=== PATIENT | female | born 1935 | race Caucasian/White ===

== ENCOUNTER 2018-01-12 09:51 | Outpatient (CLI) | payer MEDICARE, OTHER ==
--- NOTE | 2018-01-12 11:42 | MMO ---
BILATERAL SCREENING MAMMOGRAMS: Date: 01/12/18 HISTORY: History of benign right breast biopsy. This patient's mammogram was interpreted with the assistance of computer-aided detection. COMPARISON: 12/14/16, 10/01/15, 07/10/14, 06/11/13. FINDINGS: There is a heterogeneously dense parenchymal pattern, which may lower the sensitivity of mammography. Again noted are vascular calcifications and benign-appearing calcifications seen in each breast. Bio psy marker clip is again seen in the right breast. Nodular densities within each breast are also agai n seen and stable. There is no dominant mass or suspicious grouping of microcalcifications seen in ei ther breast. IMPRESSION: BIRADS 2: Benign Finding(s) Routine annual mammographic screening is recommended. POS: ZACHARY
== END 2018-01-12 09:52 | disposition home or self-care (01) ==
LOC: SCSMAMMO 09:51
PROVIDERS: ATTEND Nurse Practitioner Family
DX: Z12.31 Encounter for screening mammogram for malignant neoplasm of breast (principal)
CPT/HCPCS: 77067

== ENCOUNTER → 2019-04-22 | Day surgery (SDC) | payer MEDICARE, OTHER ==
[2019-04-19 09:01] VITALS: BMI 31.1
[~2019-04-22] MED LIST: Amiodarone 150 MG, Admixture Fee 1 EACH in Dextrose 5% in Water 100 ML IVPB SCH; Amiodarone 150 MG/3 ML VIAL ONE; Amiodarone 450 MG, Admixture Fee 1 EACH in Dextrose 5% in Water 250 ML IVPB SCH; PROPOFOL 0 ML ONE; PROPOFOL 20 ML ONE
[2019-04-22 08:04] LABS: Anion Gap 14 mmol/L (10-20); BUN (Urea Nitrogen) 12 mg/dL (9.8-20.1); Calc. Creatinine Clearance 80 mL/min (70-130); Calcium 10.1 mg/dL (7.8-10.44); Carbon Dioxide 30 mmol/L (23-31); Chloride 95 mmol/L (98-107); Estimated GFR-MDRD 88; Glucose 134 mg/dL (83-110); Potassium 3.4 mmol/L (3.5-5.1); Sodium 136 mmol/L (136-145)
[2019-04-22 08:06] LABS: INR-International Normal Ratio 0.9; PTT 30.3 SEC (22.9-36.1); Prothrombin Time 12.4 SEC (12.0-14.7)
--- NOTE | 2019-04-22 15:58 | OP ---
DATE OF PROCEDURE: 04/22/2019 PROCEDURE PERFORMED: Electrical cardioversion. INDICATION: Donna Dailey is an 83-year-old woman with a paroxysmal atrial fibrillation. DESCRIPTION OF PROCEDURE: The patient was taken to the PACU. The patient was sedated by Anesthesiology. The patient was shocked with 200,300and 300 joules of synchronized electricity. The patient remained in atrial fibrillation. IMPRESSION: Unsuccessful electrical cardioversion. Job ID: [id number] MTDD
--- NOTE | 2019-04-25 08:18 | OP ---
DATE OF PROCEDURE: 04/22/2019 PRIMARY DOCTOR: Riaz Ivy MD PROCEDURE PERFORMED: Transesophageal echocardiogram. INDICATIONS: An 83-year-old woman with paroxysmal atrial fibrillation. DESCRIPTION OF PROCEDURE: The patient was taken to the PACU. The patient was sedated by anesthesiology. A transesophageal probe was placed into the distal esophagus and stomach. Echocardiographic images were obtained. The transesophageal probe was removed. FINDINGS: 1. Normal left ventricular systolic function. 2. Left atrial enlargement. 3. Normal mitral and aortic valves. 4. Moderate mitral regurgitation. 5. Mild tricuspid regurgitation. 6. No thrombus is noted in the left atrium or left atrial appendage. 7. Atherosclerotic debris in the descending aorta. IMPRESSION: No formed thrombus in left atrium or left atrial appendage. Job ID: [id number]
--- NOTE | 2019-04-25 08:19 | OP ---
DATE OF PROCEDURE: 04/22/2019 PROCEDURE PERFORMED: Electrocardioversion. INDICATIONS: This is an 83-year-old woman with paroxysmal atrial fibrillation. DESCRIPTION OF PROCEDURE: The patient was taken to the PACU. The patient was sedated by Anesthesiology. The patient was shocked with 300 joules and 300 joules of synchronized electricity. The patient remained in atrial fibrillation. IMPRESSION: Unsuccessful electrocardioversion. Job ID: [id number]
== END ==
LOC: CCL 06:58
PROVIDERS: ATTEND Internal Medicine Cardiovascular Disease
PROC: 5A2204Z Restoration of Cardiac Rhythm, Single (ICD-10-PCS; principal; 2019-04-22)
DX: I48.0 Paroxysmal atrial fibrillation (principal); Z79.01 Long term (current) use of anticoagulants; Z79.84 Long term (current) use of oral hypoglycemic drugs; Z79.899 Other long term (current) drug therapy; Z88.5 Allergy status to narcotic agent
CPT/HCPCS: 80048; 85610; 85730; 92960; 93312; J0282; J2704; J7070

== ENCOUNTER 2019-05-16 10:25 | Day surgery (SDC) | payer MEDICARE, OTHER ==
[2019-05-15 17:43] VITALS: BMI 30.9
[2019-05-16] MEDS ORDERED: PROPOFOL 20 ML ONE (12:11)
--- NOTE | 2019-05-17 08:33 | OP ---
DATE OF PROCEDURE: 05/16/2019 PROCEDURE PERFORMED: Electrical cardioversion. INDICATION: Paroxysmal atrial fibrillation. DESCRIPTION OF PROCEDURE: The patient was taken to the PACU. The patient was sedated by Anesthesiology. The patient was shocked with 200 joules of synchronized electricity on two occasions. The patient briefly went into sinus rhythm, but reverted to atrial fibrillation. IMPRESSION: Unsuccessful electrical cardioversion. Job ID: [id number] MTDD
--- NOTE | 2019-05-17 08:35 | OP ---
DATE OF PROCEDURE: 05/16/2019 PROCEDURE PERFORMED: Transesophageal echocardiogram. INDICATION: An 83-year-old woman with paroxysmal atrial fibrillation. DESCRIPTION OF PROCEDURE: The patient was taken to the PACU. The patient was sedated by anesthesiology. A transesophageal probe was placed into the distal esophagus and stomach. Echocardiographic images were obtained. Transesophageal probe was removed. FINDINGS: 1. Normal left ventricular systolic function. 2. Normal mitral and aortic valves. 3. Mild mitral regurgitation. 4. Mild tricuspid regurgitation. 5. No thrombus noted in the left atrium or left atrial appendage. 6. Atherosclerotic debris in the descending aorta. IMPRESSION: No formed thrombus in left atrium or left atrial appendage. Job ID: [id number] MTDD
== END 2019-05-16 13:55 | disposition home or self-care (01) ==
LOC: CCL 10:25
PROVIDERS: ATTEND Internal Medicine Cardiovascular Disease
PROC: 5A2204Z Restoration of Cardiac Rhythm, Single (ICD-10-PCS; principal; 2019-05-16)
PROC: B24BZZ4 Ultrasonography of Heart with Aorta, Transesophageal (ICD-10-PCS; 2019-05-16)
DX: I48.0 Paroxysmal atrial fibrillation (principal); I34.0 Nonrheumatic mitral (valve) insufficiency; I35.1 Nonrheumatic aortic (valve) insufficiency; I70.0 Atherosclerosis of aorta; E78.5 Hyperlipidemia, unspecified; I10 Essential (primary) hypertension; E11.9 Type 2 diabetes mellitus without complications; I27.20 Pulmonary hypertension, unspecified; Z79.01 Long term (current) use of anticoagulants; Z79.84 Long term (current) use of oral hypoglycemic drugs; Z79.899 Other long term (current) drug therapy; Z88.5 Allergy status to narcotic agent; Z88.8 Allergy status to other drugs, medicaments and biological substances
CPT/HCPCS: 92960; 93312; J2704

== ENCOUNTER 2019-05-29 08:44 | Outpatient (CLI) | payer MEDICARE, OTHER ==
[2019-05-29 14:59] LABS: Mean Corpuscular HGB CONC 31.9 g/dL (32.0-36.0); Mean Corpuscular Hemoglobin 30.4 pg (27.0-31.0); Mean Corpuscular Volume 95.3 fL (78.0-98.0); Mean Platelet Volume 8.4 fL (7.4-10.4); Platelet Count 301 thou/uL (130-400); RBC Distribution Width 16.3 % (11.5-14.5); Red Blood Cell (RBC) Count 4.63 mill/uL (4.20-5.40); White Blood Cell (WBC) Count 6.7 thou/uL (4.8-10.8)
[2019-05-29 15:07] LABS: PTT 29.2 SEC (22.9-36.1)
[2019-05-29 15:19] LABS: Anion Gap 14 mmol/L (10-20); BUN (Urea Nitrogen) 18 mg/dL (9.8-20.1); Calc. Creatinine Clearance 0 mL/min (70-130); Calcium 9.7 mg/dL (7.8-10.44); Carbon Dioxide 29 mmol/L (23-31); Chloride 94 mmol/L (98-107); Estimated GFR-MDRD 81; Glucose 101 mg/dL (83-110); Potassium 3.7 mmol/L (3.5-5.1); Sodium 133 mmol/L (136-145)
== END 2019-05-29 08:45 | disposition home or self-care (01) ==
LOC: LABBT 08:44
PROVIDERS: ATTEND Internal Medicine Cardiovascular Disease
DX: Z01.818 Encounter for other preprocedural examination (principal); I48.91 Unspecified atrial fibrillation
CPT/HCPCS: 80048; 85027; 85610; 85730; 93005; 93010

== ENCOUNTER 2019-06-03 08:55 | Day surgery (SDC) | payer MEDICARE, OTHER ==
[2019-05-29 13:29] VITALS: BMI 29.9
[2019-06-03] MEDS ORDERED: PROPOFOL 200 MG/20 ML VIAL ONE (11:37)
[2019-06-03] MEDS ORDERED: Lidocaine 1% (PF) 30 ML VIAL ONE (12:27)
[2019-06-03] MEDS ORDERED: Fentanyl 100 MCG/2 ML VIAL ONE (12:31)
[2019-06-03] MEDS ORDERED: Ketamine 50 MG/ML (10ML VIAL) ONE (12:33)
[2019-06-03] MEDS ORDERED: Propofol 500 MG/50 ML VIAL ONE (13:52)
[2019-06-03] MEDS ORDERED: Iopamidol 370 76% 50 ML VIAL FS ONE (14:20)
[2019-06-03] MEDS ORDERED: Ondansetron PF 4 MG/2 ML Vial ONE (15:58)
--- NOTE | 2019-06-03 16:03 | RAD ---
EXAM: CHEST ONE VIEW HISTORY: Post pacemaker insertion. COMPARISON: 06/10/2014 FINDINGS: A dual-lead left subclavian cardiac pacemaking device is noted in place. The cardiac silhouette is ma gnified by projection but does appear mildly enlarged. Pulmonary vasculature is within normal limits. A linear density is seen in the retrocardiac region left lung base which may be related to at electasis versus scarring. Lungs otherwise appear clear. No pneumothorax is seen, and there is no definite pleural effusion identified. Vascular calcifications are seen in the thoracic aorta. Degener ative changes are again noted in the spine. IMPRESSION: 1. Interval placement of a dual-lead left subclavian cardiac pacemaking device without evidence of a pneumothorax. 2. Mild cardiomegaly. 3. Scar versus atelectasis left lung base.
== END 2019-06-03 18:00 | disposition home or self-care (01) ==
LOC: CCL 08:55
PROVIDERS: ATTEND Internal Medicine Cardiovascular Disease
PROC: 0JH607Z Insertion of Cardiac Resynchronization Pacemaker Pulse Generator into Chest Subcutaneous Tissue and Fascia, Open Approach (ICD-10-PCS; principal; 2019-06-03)
PROC: 02HK3JZ Insertion of Pacemaker Lead into Right Ventricle, Percutaneous Approach (ICD-10-PCS; 2019-06-03)
PROC: 02H43JZ Insertion of Pacemaker Lead into Coronary Vein, Percutaneous Approach (ICD-10-PCS; 2019-06-03)
DX: I48.19 Other persistent atrial fibrillation (principal); I49.5 Sick sinus syndrome; I08.1 Rheumatic disorders of both mitral and tricuspid valves; I27.20 Pulmonary hypertension, unspecified; I10 Essential (primary) hypertension; E11.9 Type 2 diabetes mellitus without complications; E78.5 Hyperlipidemia, unspecified; E55.9 Vitamin D deficiency, unspecified; Z78.0 Asymptomatic menopausal state; Z79.01 Long term (current) use of anticoagulants; Z79.84 Long term (current) use of oral hypoglycemic drugs; Z79.899 Other long term (current) drug therapy; Z87.01 Personal history of pneumonia (recurrent); Z88.5 Allergy status to narcotic agent; Z88.4 Allergy status to anesthetic agent; Z88.8 Allergy status to other drugs, medicaments and biological substances; Z90.49 Acquired absence of other specified parts of digestive tract
CPT/HCPCS: 33208; 36005; 71045; 75820; 76942; 93005; C1882; C1898; C1900; J0690; J2001; J2405; J2704; J3010; J3490; Q9967

== ENCOUNTER 2019-06-17 12:13 | Outpatient (CLI) | payer MEDICARE, OTHER ==
[2019-06-17 13:41] LABS: Hemoglobin 13.1 g/dL (12.0-16.0); Mean Corpuscular HGB CONC 32.4 g/dL (32.0-36.0); Mean Corpuscular Hemoglobin 30.9 pg (27.0-31.0); Mean Corpuscular Volume 95.4 fL (78.0-98.0); Mean Platelet Volume 7.5 fL (7.4-10.4); Platelet Count 323 thou/uL (130-400); Red Blood Cell (RBC) Count 4.23 mill/uL (4.20-5.40); White Blood Cell (WBC) Count 8.7 thou/uL (4.8-10.8)
[2019-06-17 13:48] LABS: INR-International Normal Ratio 1.1; PTT 31.9 SEC (22.9-36.1); Prothrombin Time 13.9 SEC (12.0-14.7)
[2019-06-17 14:15] LABS: Anion Gap 16 mmol/L (10-20); BUN (Urea Nitrogen) 12 mg/dL (9.8-20.1); Calc. Creatinine Clearance 0 mL/min (70-130); Calcium 9.8 mg/dL (7.8-10.44); Carbon Dioxide 27 mmol/L (23-31); Chloride 94 mmol/L (98-107); Estimated GFR-MDRD Greater than 90; Glucose 84 mg/dL (83-110); Potassium 3.6 mmol/L (3.5-5.1); Sodium 133 mmol/L (136-145)
== END 2019-06-17 12:14 | disposition home or self-care (01) ==
LOC: LABBT 12:13
PROVIDERS: ATTEND Internal Medicine Cardiovascular Disease
DX: Z01.812 Encounter for preprocedural laboratory examination (principal); I48.91 Unspecified atrial fibrillation
CPT/HCPCS: 80048; 85027; 85610; 85730

== ENCOUNTER 2019-06-19 05:55 | Day surgery (SDC) | payer MEDICARE, OTHER ==
[2019-06-17 12:55] VITALS: BMI 29.9
[2019-06-19] MEDS ORDERED: Heparin (Artline) 500 ML ONE (06:40)
[2019-06-19] MEDS ORDERED: Lidocaine 1% (PF) 30 ML VIAL ONE (06:41)
[2019-06-19] MEDS ORDERED: Midazolam HCl 2 mg/2 ml Vial ONE (06:42)
[2019-06-19] MEDS ORDERED: Fentanyl 100 MCG/2 ML VIAL ONE (06:42)
[2019-06-19] MEDS ORDERED: Propofol 500 MG/50 ML VIAL ONE (07:24)
[2019-06-19] MEDS ORDERED: Heparin 10,000 UNITS/1 ML VIAL ONE (09:10)
[2019-06-19] MEDS ORDERED: DOPamine 400 MG/D5W 250 ML 250 ML ONE (09:11)
--- NOTE | 2019-06-19 10:18 | OP ---
DATE OF PROCEDURE: 06/19/2019 PROCEDURE: AV alexa ablation. REASON FOR PROCEDURE: Ms. Dailey is an 83-year-old female with history of persistent atrial fibrillation, repeat cardioversions in 2019 unsuccessful despite amiodarone therapy. She is a limited candidate for pulmonary venous isolation, has moderate to severe MR. She underwent a Bi-V pacemaker implantation in the beginning of the month and has continued atrial fibrillation with RVR, now off amiodarone. She is here for AV alexa ablation. DESCRIPTION OF PROCEDURE: The right femoral vein was prepped, draped, anesthetized. After adequate level of sedation achieved, under ultrasound guidance, the right femoral vein was then cannulated x1 with an 8-Turkmen short sheath which was introduced, through which a ThermoCool catheter was advanced to the right atrium. Under fluoroscopic guidance and intracardiac electrogram guidance, the His bundle was located. Radiofrequency ablation was delivered at the AV node, total of 13 lesions delivered at total ablation time of 11 minutes and 19 seconds at 40 claire. At the end of the case, complete AV block was achieved with junctional escape rhythm seen at 33 beats per minute. The pacemaker function was verified before and after the case and found to be adequate. LV thresholds were still reasonably good at the distal pole. The cardiac silhouette did not change throughout the procedure. The patient tolerated the procedure well. No complications noted. PLAN: Resume anticoagulation and continue to monitor for recurrent AV conduction. Continue holding amiodarone. Titrate beta-aylin as necessary for blood pressure control. Job ID: [id number]
[2019-06-19] MEDS ORDERED: PROPOFOL 200 MG/20 ML VIAL ONE (11:51)
--- NOTE | 2019-06-20 15:56 | EKG ---
Test Reason : S/P ABLATION Blood Pressure : / mmHG Vent. Rate : 070 BPM Atrial Rate : 241 BPM P-R Int : 000 ms QRS Dur : 138 ms QT Int : 472 ms P-R-T Axes : 000 -45 093 degrees QTc Int : 509 ms Poor data quality, interpretation may be adversely affected Ventricular-paced rhythm Abnormal ECG When compared with ECG of 03-JUN-2019 15:57, (Unconfirmed) Electronic ventricular pacemaker has replaced Atrial fibrillation Confirmed by MELANIA VALDES ([id number]) on 06/20/2019 3:55:48 PM Referred By: STEPHANIE Confirmed By:MELANIA VALDES
== END 2019-06-19 13:16 | disposition home or self-care (01) ==
LOC: CCL 05:55
PROVIDERS: ATTEND Internal Medicine Cardiovascular Disease
PROC: 02583ZZ Destruction of Conduction Mechanism, Percutaneous Approach (ICD-10-PCS; principal; 2019-06-19)
DX: I48.19 Other persistent atrial fibrillation (principal); I08.1 Rheumatic disorders of both mitral and tricuspid valves; I27.20 Pulmonary hypertension, unspecified; E11.9 Type 2 diabetes mellitus without complications; I10 Essential (primary) hypertension; E78.5 Hyperlipidemia, unspecified; E55.9 Vitamin D deficiency, unspecified; Z79.01 Long term (current) use of anticoagulants; Z79.84 Long term (current) use of oral hypoglycemic drugs; Z79.899 Other long term (current) drug therapy; Z88.5 Allergy status to narcotic agent; Z88.8 Allergy status to other drugs, medicaments and biological substances; Z95.0 Presence of cardiac pacemaker
CPT/HCPCS: 76942; 93005; 93010; 93650; C1769; C2630; J1265; J1644; J2001; J2250; J2704; J3010

== ENCOUNTER 2019-07-12 12:05 | Observation (INO) | payer MEDICARE, OTHER ==
[2019-07-12 12:40] LABS: #Basophils 0.1 thou/uL (0.0-0.2); #Eosinphils 0.2 thou/uL (0.0-0.7); #Lymphocytes 2.1 thou/uL (1.20-3.40); #Monocytes 0.4 thou/uL (0.11-0.59); #Neutrophils 3.1 thou/uL (1.40-6.50); %Eosinophils 2.7 % (0.0-10.0); %Lymphocytes 36.8 % (21.0-51.0); %Monocytes 6.6 % (0.0-10.0); %Neutrophils 52.9 % (42.0-75.0); Hemoglobin 13.1 g/dL (12.0-16.0); Mean Corpuscular HGB CONC 32.9 g/dL (32.0-36.0); Mean Corpuscular Hemoglobin 31.4 pg (27.0-31.0); Mean Corpuscular Volume 95.3 fL (78.0-98.0); Platelet Count 238 thou/uL (130-400); Red Blood Cell (RBC) Count 4.18 mill/uL (4.20-5.40); White Blood Cell (WBC) Count 5.8 thou/uL (4.8-10.8)
[2019-07-12 12:48] LABS: INR-International Normal Ratio 0.9; PTT 27.6 SEC (22.9-36.1)
[2019-07-12 13:02] LABS: ALT (SGPT) 15 U/L (8-55); AST (SGOT) 15 U/L (5-34); Alkaline Phosphatase 69 U/L (40-110); Anion Gap 11 mmol/L (10-20); BUN (Urea Nitrogen) 11 mg/dL (9.8-20.1); Bilirubin, Total 0.8 mg/dL (0.2-1.2); Calc. Creatinine Clearance 0 mL/min (70-130); Calcium 10.3 mg/dL (7.8-10.44); Carbon Dioxide 35 mmol/L (23-31); Chloride 93 mmol/L (98-107); Estimated GFR-MDRD Greater than 90; Globulin 2.5 g/dL (2.4-3.5); Glucose 111 mg/dL (83-110); Potassium 3.6 mmol/L (3.5-5.1); Protein, Total 6.5 g/dL (6.0-8.3); Sodium 135 mmol/L (136-145)
[2019-07-12] MEDS ORDERED: Pantoprazole 40 MG VIAL ONE (13:56)
[2019-07-12] MEDS ORDERED: Bisacodyl 5 MG TAB PO PRN (14:58)
[2019-07-12] MEDS ORDERED: Acetaminophen 325 MG TAB PO PRN (14:58)
[2019-07-12] MEDS ORDERED: HumaLOG 300 UNITS/3 ML VIAL SC PRN (15:14)
[2019-07-12] MEDS ORDERED: Dextrose 5% in Water 1,000 ML IV PRN (15:14)
[2019-07-12] MEDS ORDERED: Dextrose 50% Abboject 50 ML SYRINGE SLOW IVP PRN (15:14)
--- NOTE | 2019-07-12 15:42 | HP ---
PRIMARY CARE PROVIDER: Riaz Ivy MD. FIRE PREVENTION INSPECTOR: Frank Nelson MD. DRILL OPERATOR AUTOMATIC: Cabrera Plascencia MD. CHIEF COMPLAINT: Rectal bleeding. HISTORY OF PRESENT ILLNESS: Ms. Dailey is a pleasant 83-year-old lady, who was seen at [facility] on July 12, 2019. She reports that she was started on anticoagulation with apixaban in March 2019 for atrial fibrillation. Today, she had a regular bowel movement after waking up. After that she started passing blood per rectum. She reports wiping multiple times and having blood on the wipe. She denies any lightheadedness. She denies any generalized weakness. She denies any chest pain. She does have a history of hemorrhoids. She reports that her last colonoscopy was 6 years ago and she was told she did not need anymore colonoscopies. REVIEW OF SYSTEMS: All systems were reviewed and found to be negative except for the pertinent positives mentioned above. PAST MEDICAL HISTORY: Chronic atrial fibrillation, diabetes mellitus type 2, peptic ulcer disease, hypertension, and pulmonary hypertension. PAST SURGICAL HISTORY: Pacemaker, ablation, bladder surgery, appendectomy, cholecystectomy, and hysterectomy. SOCIAL HISTORY: The patient denies tobacco use, alcohol use, or recreational drug use. FAMILY HISTORY: No family history of premature coronary artery disease. CODE STATUS: I discussed her code status. She is full code. ALLERGIES: AMIODARONE, CODEINE, AND PROCAINE. CURRENT MEDICATIONS: These need to be clarified, but appeared to include: 1. Coreg 12.5 mg daily. 2. Eliquis 5 mg daily. 3. Potassium chloride 20 mEq 2 times a day. 4. Exforge 10/160 mg daily. 5. Metformin 1000 mg 2 times a day. 6. Calcium/vitamin D one tablet daily. 7. Fish oil one capsule daily. 8. Cinnamon 1000 mg daily. PHYSICAL EXAMINATION: GENERAL: On examination, Ms. Dailey is awake and alert, not in acute distress. VITAL SIGNS: Blood pressure is 182/87, pulse 74, respiratory rate 22, and oxygen saturation 96% on room air. She is afebrile. EYES: No scleral icterus, no conjunctival pallor. ENT: Moist mucosal membranes. No oropharyngeal erythema or exudates. NECK: Supple and nontender. Trachea is midline. RESPIRATORY: Accessory muscles of breathing are not active. Chest wall movements are symmetric bilaterally. LUNGS: Clear to auscultation without wheeze, rhonchi, or crepitations. CARDIOVASCULAR: S1 and S2 are heard, regular. Peripheral pulses palpable. ABDOMEN: Soft and nontender. Bowel sounds are heard. NEUROLOGIC: Cranial nerves 2 through 12 are intact. MUSCULOSKELETAL: Power is 5/5 in all 4 extremities. SKIN: No rashes or subcutaneous nodules. LYMPHATIC: No cervical lymphadenopathy. PSYCHIATRIC: Normal mood, normal affect. The patient is oriented to person, place, and time. LABORATORY DATA: Ms. Dailey's labs and investigations were reviewed. Electrocardiogram shows electronic ventricular paced rhythm. She has normal white count, normal hemoglobin of 13.1, hemoglobin was 13.1 on June 17, 2019 as well, normal platelet count, INR 0.9, decreased sodium of 135, normal potassium, and normal creatinine. LFTs are unremarkable. ASSESSMENT AND PLAN: Ms. Dailey is a pleasant 83-year-old lady, who was seen at [facility] on July 12, 2019. Her problem list includes: 1. Gastrointestinal bleed: Ms. Dailey is presenting with lower gastrointestinal bleed. She is hemodynamically stable and her hemoglobin is stable as well. She will be admitted to the hospital on observation status. Hemoglobin and hematocrit will be checked. Gastroenterology Service will be consulted for opinion and help with management. 2. Chronic atrial fibrillation: We will hold Eliquis for now. Depending on the outcome of the tests, we will decide regarding resumption of apixaban. 3. Diabetes mellitus type 2: Start Accu-Cheks and insulin sliding scale, resume home medications once clarified. 4. Hypertension: Resume home medications once clarified, monitor vital signs and titrate antihypertensives as needed. Many thanks for allowing me to participate in your patient's care. Please feel free to contact me with any questions or concerns. LEVEL OF RISK: Moderate. LEVEL OF COMPLEXITY: Moderate. Job ID: [id number]
[2019-07-12 16:10] LABS: Hemoglobin 13.4 g/dL (12.0-16.0)
--- NOTE | 2019-07-12 21:31 | CON ---
DATE OF CONSULTATION: 07/12/2019 REQUESTING PHYSICIAN: Dr. Molina. REASON FOR CONSULTATION: Lower GI bleeding. HISTORY OF PRESENT ILLNESS: Donna Dailey is a very pleasant 83-year-old woman. She has a history of atrial fibrillation and was started on Eliquis last March. She had no issues with this medication. She has seen my GI colleague, Dr. Emily Fabian in the past. Her last colonoscopy was in 2013, and this was completely normal exam with the exception of internal and external hemorrhoids. The patient states that she has some tendency toward intermittent diarrhea off and on, but no chronic bleeding. Last night, she was feeling a bit constipated, had to strain to have a bowel movement and eventually quit trying, but then this morning she had there, she would have a bowel movement and she passed a normal-appearing stool. However, following that bowel movement, she started having blood dripping into the toilet from her rectum. She used up several wipes trying to blot up the toilet paper and eventually got it. Then a couple of hours later, she had another normal-appearing bowel movement, but also followed by bright red blood. This prompted her presentation. She has no other symptoms. There is no anal pain. There is no abdominal discomfort other than some chronic intermittent mild abdominal discomfort, which she has been having for years. She has no nausea or vomiting. Her hemoglobin is normal and stable initially 13.1, now 13.4. She has not had any further bleeding since arrival here. FOBT was checked and is positive. Eliquis is being held and she is being admitted for observation. REVIEW OF SYSTEMS: Full review of systems including constitutional; head, eyes, ears, nose, throat; GI; ; cardiovascular; respiratory; musculoskeletal; and neurologic systems is negative except as noted in the HPI. PAST MEDICAL HISTORY: Atrial fibrillation, on Eliquis since March; diabetes type 2; peptic ulcer disease; hypertension; pulmonary hypertension; pacemaker placement; cardiac ablation, hysterectomy; cholecystectomy; appendectomy; and bladder surgery. ALLERGIES: AMIODARONE, CODEINE, AND PROCAINE. OUTPATIENT MEDICATIONS: 1. Eliquis. 2. Coreg. 3. Exforge. 4. Potassium chloride. 5. Metformin. 6. Calcium/vitamin D. 7. Fish oil. 8. Cinnamon. FAMILY HISTORY: Noncontributory. SOCIAL HISTORY: No smoking, alcohol, or drug use. PHYSICAL EXAMINATION: VITAL SIGNS: Blood pressure 182/87, pulse 74, and oxygen saturation 96% on room air. She is afebrile. GENERAL: An 83-year-old woman, lying in bed comfortably, in no distress. MENTAL: Alert and fully oriented. Pleasant, conversational. SKIN: No jaundice. No rashes were palpable. EYES: No scleral icterus. Extraocular movements intact. ENT: Mucous membranes moist. No oral lesions. LYMPH: No submandibular or supraclavicular lymphadenopathy. THYROID: Nontender to palpation. HEART: Regular rate and rhythm. LUNGS: Clear to auscultation bilaterally. ABDOMEN: Bowel sounds are present. Abdomen is nondistended, soft, nontender to palpation throughout. No masses or organomegaly appreciated. EXTREMITIES: No peripheral edema. VESSELS: Radial pulses 2+ bilaterally. NEUROLOGIC: Cranial nerves 2 through 12 intact bilaterally. No focal deficits. RECTAL: I did perform rectal exam. The patient has large external hemorrhoids. There is no active bleeding. Digital exam demonstrates palpable internal hemorrhoids, but no nodularity. No masslike lesions. There is a small amount of semi-solid stool in the rectal vault, which is normal brown in color. On withdrawal of the glove, there is no blood on withdrawal of the glove. LABORATORY STUDIES: Hemoglobin initially 13.1, stable at 13.4 now, WBC 5.8, platelets 238. Sodium 135, potassium 3.6, BUN 11, creatinine 0.60. INR 0.9. Total bilirubin 0.8, alkaline phosphatase 69, AST 15, ALT 15, and albumin 4.0. FOBT positive. ASSESSMENT AND PLAN: 1. Rectal bleeding, single episode earlier today, likely representing hemorrhoidal bleeding. 2. Internal and external hemorrhoids. I had a long discussion with the patient and her daughter. Her presentation is classic for rectal outlet source and indeed she has known internal and external hemorrhoids. Her hemoglobin is normal and stable. She had otherwise normal colonoscopy just over 5 years ago. Given her age and her classic presentation, I do not feel there is a lot to be gained by endoscopic investigation. At this time, we are going to tentatively plan no colonoscopy. We will give her regular diet tonight. I can follow up with her tomorrow morning, assure hemoglobin is remained stable. I think if everything is looking good tomorrow morning, she could be discharged from the hospital to follow up with Dr. Fabian on an outpatient basis. If she has a significant amount of bleeding overnight and/or significant hemoglobin decline, then we could consider bowel preparation tomorrow evening and colonoscopy the following day. Hold the Eliquis in the meantime. Thank you for the consultation. Please call anytime with questions or concerns. Job ID: [id number]
[2019-07-12 22:08] LABS: Hemoglobin 13.6 g/dL (12.0-16.0)
[2019-07-12] MEDS ORDERED: Carvedilol 6.25 MG TAB PO SCH (23:45)
[2019-07-13 05:08] LABS: #Basophils 0.1 thou/uL (0.0-0.2); #Eosinphils 0.2 thou/uL (0.0-0.7); #Lymphocytes 2.4 thou/uL (1.20-3.40); #Monocytes 0.5 thou/uL (0.11-0.59); #Neutrophils 4.3 thou/uL (1.40-6.50); %Basophils 1.1 % (0.0-1.0); %Eosinophils 2.2 % (0.0-10.0); %Lymphocytes 32.1 % (21.0-51.0); %Monocytes 7.2 % (0.0-10.0); %Neutrophils 57.4 % (42.0-75.0); Hemoglobin 12.6 g/dL (12.0-16.0); Mean Corpuscular HGB CONC 31.3 g/dL (32.0-36.0); Mean Corpuscular Hemoglobin 29.6 pg (27.0-31.0); Mean Corpuscular Volume 94.3 fL (78.0-98.0); Mean Platelet Volume 8.4 fL (7.4-10.4); Platelet Count 246 thou/uL (130-400); RBC Distribution Width 16.9 % (11.5-14.5); Red Blood Cell (RBC) Count 4.26 mill/uL (4.20-5.40); White Blood Cell (WBC) Count 7.6 thou/uL (4.8-10.8)
[2019-07-13 05:33] LABS: Anion Gap 13 mmol/L (10-20); BUN (Urea Nitrogen) 7 mg/dL (9.8-20.1); Calc. Creatinine Clearance 89 mL/min (70-130); Calcium 9.7 mg/dL (7.8-10.44); Carbon Dioxide 32 mmol/L (23-31); Chloride 93 mmol/L (98-107); Estimated GFR-MDRD Greater than 90; Glucose 121 mg/dL (83-110); Sodium 135 mmol/L (136-145)
[2019-07-13] MEDS ORDERED: Carvedilol 6.25 MG TAB PO SCH (08:00)
[2019-07-13 08:21] VITALS: BP 184/82; TEMP 98.7
[2019-07-13] MEDS ORDERED: Chlorthalidone 25 MG TAB PO SCH (09:00)
[2019-07-13] MEDS ORDERED: Valsartan 80 MG TAB PO SCH (09:00)
[2019-07-13] MEDS ORDERED: Amlodipine 5 MG TAB PO SCH (09:00)
[2019-07-13] MEDS: Potassium Chloride 20 MEQ TAB PO SCH ×2 (09:28→10:55)
--- NOTE | 2019-07-13 09:38 | PRG ---
DATE OF SERVICE: 07/13/2019 SUBJECTIVE: Ms. Dailey did not get much sleep last night, but she is otherwise feeling well. There is no abdominal pain or anal pain. She had another episode of some red blood per rectum yesterday evening, but nothing overnight or this morning. Hemoglobin is stable, currently 12.6. OBJECTIVE: VITAL SIGNS: Temperature 98.7, pulse 70, blood pressure 184/82, and 95% oxygen saturation on room air. GENERAL: No acute distress. HEART: Regular rate and rhythm. LUNGS: Clear to auscultation bilaterally. ABDOMEN: Soft, nontender to palpation. EXTREMITIES: No peripheral edema. LABORATORY STUDIES: WBC 7.6, hemoglobin 12.6, and platelets 246. INR 0.9. Sodium 135, potassium 3.0, BUN 7, creatinine 0.55, glucose 121, and calcium 9.7. ASSESSMENT AND PLAN: Hemorrhoids, with bleeding. The patient remains stable with stable hemoglobin this morning. My impression has not changed. Everything is consistent with hemorrhoidal bleeding. The patient is eager for hospital discharge today, and this is fine from a GI standpoint. We will have her follow up in the GI Clinic with Dr. Fabian or her PA in the next few weeks. Recommended she use a stool softener such as docusate 100 mg twice daily, avoid straining to defecate. I suspect her Eliquis can probably be continued. GI will sign off. Please call back anytime with questions or concerns. Job ID: [id number]
--- NOTE | 2019-07-13 11:39 | DIS ---
DATE OF ADMISSION: 07/12/2019 DATE OF DISCHARGE: 07/13/2019 PRIMARY CARE PROVIDER: Riaz Ivy MD. DISCHARGE DIAGNOSES: 1. Lower gastrointestinal bleed. 2. Hyponatremia. 3. Hypokalemia. CONDITION OF PATIENT ON THE DAY OF DISCHARGE: Stable. I assessed Ms. Dailey on the day of discharge. She denies any chest pain or shortness of breath. Vital signs are stable. S1 and S2 are heard, regular. Lungs are clear to auscultation bilaterally. CONSULTATIONS DURING THIS HOSPITALIZATION: Gastroenterology, Dr. Skyler Nayak. DISCHARGE MEDICATIONS: No change was made to her pre-admission home medications including Eliquis. HOSPITAL COURSE: Ms. Dailey is a pleasant 83-year-old lady, who was admitted to [facility] on July 12, 2019 for rectal bleeding. She was seen by Gastroenterology Service. Her hemoglobin was stable. It was felt that her bleeding was secondary to hemorrhoidal bleeding. She has been cleared for discharge by Gastroenterology Service. She has been advised to resume apixaban and have her hemoglobin checked in 5 to 7 days through her primary care provider. On the day of discharge, she has white count 7600, hemoglobin 12.6, platelet count 246,000. Sodium 135, and potassium 3.0. Potassium is being replaced prior to discharge. POST-ACUTE CARE FOLLOWUP: With primary care provider in 3 days and with her psych specialist, Dr. Nelson in 1 week. ACTIVITY: No restrictions. DIET: Heart healthy diet. DISCHARGE DESTINATION: Home. Job ID: [id number]
--- NOTE | 2019-07-20 15:57 | EKG ---
Test Reason : Blood Pressure : / mmHG Vent. Rate : 072 BPM Atrial Rate : 288 BPM P-R Int : 000 ms QRS Dur : 124 ms QT Int : 456 ms P-R-T Axes : 000 -49 079 degrees QTc Int : 499 ms Electronic ventricular pacemaker Confirmed by ROBINSON TAMAYO ([id number]), newspaper copy editor AISHA SALGUERO ([id number]) on 07/20/2019 3:57:26 PM Referred By: Confirmed By:ROBINSON TAMAYO
== END 2019-07-13 11:03 | disposition home or self-care (01) ==
LOC: ERS 12:05 → ERHOLD 15:18 → 2SW 17:41
PROVIDERS: ADMIT Internal Medicine; ATTEND Internal Medicine
DX: K62.5 Hemorrhage of anus and rectum (principal); K64.4 Residual hemorrhoidal skin tags; K64.8 Other hemorrhoids; I48.20 Chronic atrial fibrillation, unspecified; E11.9 Type 2 diabetes mellitus without complications; I10 Essential (primary) hypertension; E87.1 Hypo-osmolality and hyponatremia; E87.6 Hypokalemia; Z79.01 Long term (current) use of anticoagulants; Z79.84 Long term (current) use of oral hypoglycemic drugs; Z79.899 Other long term (current) drug therapy; Z88.5 Allergy status to narcotic agent; Z88.8 Allergy status to other drugs, medicaments and biological substances; Z95.0 Presence of cardiac pacemaker
CPT/HCPCS: 80048; 80053; 82274; 82962; 85014; 85018; 85025 ×2; 85610; 85730; 86850; 86900; 86901; 93005; 94760; 96361; 96374; 99285; G0378 ×2; 36415; 36416; C9113